=== PATIENT | male | born 1970 | race Caucasian/White ===

== ENCOUNTER 2021-01-14 17:29 | Outpatient (CLI) | payer OTHER, SELFPAY ==
[2021-01-16 19:33] LABS: H pylori, Urea Breath NOT DETECTED (NOT DETECTED)
== END 2021-01-14 17:30 | disposition home or self-care (01) ==
LOC: CHSLAB 17:33
PROVIDERS: PCP Family Medicine; Visit Provider Family Medicine
DX: K21.9 Gastro-esophageal reflux disease without esophagitis (principal)
CPT/HCPCS: 83013

== ENCOUNTER 2021-03-30 15:53 | Outpatient (CLI) | payer OTHER, SELFPAY ==
--- NOTE | ~2021-03-30 | XR_ITS ---
XR lumbar spine 2-3V DATE: 03/30/2021 16:13 INDICATION: Low back pain radiating down left lower extremity TECHNIQUE: AP, lateral, coned lateral lumbosacral views COMPARISON: None FINDINGS: Normal alignment of the lumbar spine. No fracture or bone destruction or spondylolisthesis. The lumbar pedicles are intact. Lumbar and lumbosacral interspaces are well preserved. The sacroilia c joints appear normal. IMPRESSION: Negative Reviewed, dictated and finalized at location A. IMPRESSION: Negative
== END 2021-03-30 15:54 | disposition home or self-care (01) ==
LOC: CHSIMG 15:55
PROVIDERS: PCP Nurse Practitioner Family; Visit Provider Nurse Practitioner Family
DX: M54.50 Low back pain, unspecified (principal)
CPT/HCPCS: 72100

== ENCOUNTER 2022-03-15 10:15 | Outpatient (CLI) | payer OTHER, SELFPAY ==
[2022-03-17 23:03] LABS: H pylori, Urea Breath NOT DETECTED (NOT DETECTED)
== END 2022-03-15 10:16 | disposition home or self-care (01) ==
PROVIDERS: PCP Family Medicine; Visit Provider Family Medicine
DX: K21.9 Gastro-esophageal reflux disease without esophagitis (principal)
CPT/HCPCS: 83013

== ENCOUNTER 2022-04-13 09:46 | Outpatient (CLI) | payer OTHER, SELFPAY ==
[2022-04-13 10:49] LABS: SARS-CoV-2 RNA PCR Positive (Negative)
== END 2022-04-13 09:47 | disposition home or self-care (01) ==
LOC: CHSLAB 09:48
PROVIDERS: PCP Family Medicine; Visit Provider Family Medicine
DX: U07.1 COVID-19 (principal)
CPT/HCPCS: C9803; U0003; U0005

== ENCOUNTER 2022-07-30 16:00 | Outpatient (RCR) | payer OTHER, SELFPAY ==
--- NOTE | 2022-07-30 17:46 | PTOPEVAL1 ---
Assessment and note entered by Jennifer Cervantes DPT Evaluation Information Assessment Status Evaluation Diagnosis L shoulder pain Onset April 2022 Subjective Information Patient reports that he had a cervical fusion from 3-4 about 6 years ago. In April he reports notices some pain from left side of the neck and down into the upper trap and lat. 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 He reports he works out 6 days a week. He reports that pain increases after the work day. He takes aleve when pain increases as well as bio freeze. Reported Pain Level Pain Score 1: Self Report Assessment PT Clinical Summary Patient presents to PT with L cervical and shoulder pain. Patient demonstrates decreased L shoulder strength, impaired posture and tenderness at the L upper trap impairing his ability to work a full shift without increase in pain. Patient would benefit from skilled PT to address impairments and return to PLOF. Plan of Care Interventions Electrical Stimulation,Hot Pack/Cold Pack,Manual Therapy,Mechanical Traction,Neuro Re-education, Patient/Caregiver Educati,Therapeutic Activities, Therapeutic Exercise,Self-Care/Home Management PT Services Indicated Yes Treatment Frequency and 2x weekly for 10 visits Duration These treatments will address the objective and functional deficits as defined above. The patient will be advanced safely and appropriately in order for the patient to progress towards his/her prior level of function. Additional exercises will be introduced and as well as a comprehensive home exercise program upon discharge, if needed, ?to ensure carryover of functional gains achieved in the clinic. This treatment plan has been reviewed and agreement upon by the patient.
== END 2022-08-19 14:40 | disposition home or self-care (01) ==
LOC: CHSPT 16:00
PROVIDERS: PCP Family Medicine; Visit Provider Family Medicine
DX: S46.819D Strain of other muscles, fascia and tendons at shoulder and upper arm level, unspecified arm, subsequent encounter (principal)
CPT/HCPCS: 97014; 97110; 97140; 97161; G0283

== ENCOUNTER 2023-04-12 08:07 | Outpatient (CLI) | payer OTHER, SELFPAY ==
[2023-04-12 08:23] LABS: Basophils Absolute Auto 0.05 K/mm3 (0.00-0.10); Basophils Percent Auto 0.8 % (0.0-1.0); Eosinophils Absolute Auto 0.18 K/mm3 (0.02-0.50); Eosinophils Percent Auto 2.8 % (1.0-6.0); Hematocrit 42.8 % (40.0-54.0); Hemoglobin 14.7 g/dL (14.0-18.0); Immature Granulocyte Absolute 0.02 K/mm3 (0.00-0.00); Immature Granulocyte Percent A 0.3 % (0.0-0.0); Lymphocytes Absolute Auto 2.01 K/mm3 (1.10-4.50); Mean Corpuscular HGB Conc 34.3 g/dL (32.0-36.0); Mean Corpuscular Volume 87.3 fL (78.0-102.0); Mean Platelet Volume 9.9 fl (8.7-11.0); Monocytes Absolute Auto 0.59 K/mm3 (0.10-0.90); Monocytes Percent Auto 9.1 % (2.0-11.0); Neutrophils Absolute Auto 3.6 K/mm3 (1.7-7.2); Platelet Count Result 215 K/mm3 (150-420); Red Cell Distribution Width 11.7 % (11.6-14.4); White Blood Count 6.5 K/mm3 (4.8-10.8)
[2023-04-12 09:11] LABS: Alanine Aminotransferase 38 U/L (16-63); Albumin Level 3.7 g/dL (3.4-5.0); Alkaline Phosphatase 84 U/L (46-116); Anion Gap 10 mmol/L (8-16); Aspartate Amino Transferase 17 U/L (15-37); Bilirubin,Total 0.5 mg/dL (0.00-1.00); Blood Urea Nitrogen 21 mg/dL (7-18); Calcium 8.8 mg/dL (8.5-10.1); Carbon Dioxide 26 mmol/L (21-32); Chloride 107 mmol/L (98-108); Cholesterol 154 mg/dL (0-200); Estimated Glomerular Filt Rate > 60; Glucose 102 mg/dL (70-99); HDL Direct 39 mg/dL (40-60); LDL Cholesterol Calculated 77 mg/dL (<130); Osmolality Calculated 299 mOsm/kg (285-295); Potassium 3.9 mmol/L (3.5-5.1); Prostate Specific Antigen 0.8 ng/mL (< OR = 4.0); Sodium 143 mmol/L (136-145); Total Protein 6.4 g/dL (6.4-8.2); Triglycerides 191 mg/dL (0-150)
[2023-04-12 09:12] LABS: Thyroid Stimulating Hormone Reflex 0.97 u/IU/mL (0.36-3.74)
[2023-04-15 17:43] LABS: Testosterone Free 24.9 pg/mL (35.0-155.0); Testosterone Total 132 ng/dL (250-1100)
== END 2023-04-12 08:08 | disposition home or self-care (01) ==
LOC: CHSLAB 08:09
PROVIDERS: PCP Family Medicine; Visit Provider Family Medicine
DX: Z00.00 Encounter for general adult medical examination without abnormal findings (principal); R35.1 Nocturia; E11.9 Type 2 diabetes mellitus without complications
CPT/HCPCS: 36415; 80053; 80061; 84153; 84402; 84403; 84443; 85025; G0103

== ENCOUNTER 2024-09-18 08:01 | Outpatient (CLI) | payer OTHER, SELFPAY ==
--- OUTSIDE RECORDS SUMMARY | 2024-09-18 08:13 | XMS_ITS | Clinical Summary ---
Author Organization [facility] Address [facility] [place] [address] Care Team Providers Care Metallurgist Helper Name Role Phone None, Provider MD Primary Care Provider Unavaila ble Allergies No known active allergies Medications omeprazole 20 MG capsule Take 20 mg by mouth daily. Active NON FORMULARY Take 1 tablet by mouth daily. miovite Active naproxen 375 MG tablet Take 375 mg by mouth 2 (two) times daily as needed. Neck pain following disc fusion. 3-4 cervical Active HYDROcodone-clinton taminophen 5-325 MG tabletIndicatio ns:Acute Pain < 7 Day Supply Take 1-2 tablets by mouth every 4 (four) hours as needed for Pain. Indications: Acute Pain < 7 Day Supply For Moderate Pain 35 tablet Active Family History Medical History Relation Comments No Known Problems Brother No Known Problems Daughter Diabetes Father Heart Attack Father COPD Mother No Known Problems Sister No Known Problems Son Relation Status Comments Brother Alive Daughter Alive Father Alive Mother Alive Sister Alive Son Alive Social History Tobacco Use Types Packs/Day Years Used Date Smoking Tobacco: Light Smoker Cigarettes Smokeless Tobacco: Never Comments:1 pk would last a c ouple of weeks Alcohol Use Standard Drinks/Week Comments Yes 6.7 (1 standard drink = 0.6 oz p ure alcohol) Sex and Gender Information Value Date Recorded Sex Assigned at Not on file Legal Sex Male 10:53 AM CDT Gender Identity Not on file Sexual Orientation Not on file Last Filed Vital Signs Vital Sign Reading Time Taken Comments Blood Pressure 119/89 11/10/2020 10:45 AM CDT Pulse 68 11/10/2020 10:45 AM CDT Temperature 36.1 C (97 F) 11/10/2020 10:45 AM CDT Respiratory Rate 16 11/10/2020 10:45 AM CDT Oxygen Saturation 100% 11/10/2020 10:45 AM CDT Inhaled Oxygen Concentration - - Weight 87.6 kg (193 lb 2 oz) 11/10/2020 6:55 AM CDT Height 172.7 cm (5' 8 ) 11/10/2020 6:55 AM CDT Body Mass Index 29.36 11/10/2020 6:55 AM CDT Plan of Treatment Health Maintenance Due Date Last Done Comments Colorectal Cancer Screening Colonoscopy (10 Years) 1972 Annual Physical 11/02/1975 Pneumococcal Vaccine: Pediat rics (0 to 5 Years) and At-Risk Patients (6 to 64 Years) (1 of 2 - PCV) 1978 Hepatitis C 1990 DTaP, Tdap and Td Vaccines ( 1 - Tdap) 11/02/1991 Hepatitis B Vaccines (1 of 3 - 19+ 3-dose series) 11/02/1991 Zoster Vaccines (1 of 2) 2022 COVID-19 Vaccine ( - 2023-2 5 season) 2024 Influenza Adult (#1) 2024 Meningococcal B Vaccine Aged Out No l onger eligible based on patient's age to complete this topic Meningococcal Vaccine Aged Out No milady alcides eligible based on patient's age to complete this topic RSV Immunizations Under 20 Months Aged Out No longer eligible based on patient's age to complete this topic Insurance CIG Care Teams Metallurgist Helper Relationship Specialty Start Date End Date None, Provider, PCP - General 11/07/20
--- OUTSIDE RECORDS SUMMARY | 2024-09-18 08:13 | XMS_ITS | Encounter Summary ---
Author Organization [facility] Address [address] [place] [address] Care Team Providers Care Business Teacher Name Role Phone None, Provider Primary Care Provider Unavaila ble Encounter Details Date Type Department Care Team (Late st Contact Info) Description 11/10/2020 Prep for Procedure [place] Pre-Ad[facility] Testing [address] [place], [place] [id number] Alonzo Mustafa MD [address] [place] [id number] Social History Tobacco Use Types Packs/Day Years [...] on file Sexual Orientation Not on file COVID-19 Exposure Response Date Recorded In the last month, have you been in contact with someone who was confirmed or suspected to have Coronavirus / COVID-19? No / Unsure 11/10/2020 5:07 AM CDT documented as of this encounter Plan of Treatment Not on file documented as of this encounter Visit Diagnoses Diagnosis Preoperative testing- Primary Preoperative examination, unspecified documented in this encounter Care Teams Business Teacher Relationship Specialty Start Date End Date None, Provider, PCP - General 11/07/20 documented as of this encounter
[2024-09-18 08:46] LABS: Alanine Aminotransferase 32 U/L (16-63); Albumin Level 3.9 g/dL (3.4-5.0); Alkaline Phosphatase 98 U/L (46-116); Anion Gap 9 mmol/L (4-12); Aspartate Amino Transferase 14 U/L (15-37); Bilirubin,Total 0.8 mg/dL (0.00-1.00); Blood Urea Nitrogen 20 mg/dL (7-18); Calcium 8.7 mg/dL (8.5-10.1); Carbon Dioxide 28 mmol/L (21-32); Chloride 104 mmol/L (98-108); Cholesterol 186 mg/dL (0-200); Estimated Glomerular Filt Rate > 60; Glucose 96 mg/dL (70-99); HDL Direct 45 mg/dL (40-60); LDL Cholesterol Calculated 119 mg/dL (<130); Osmolality Calculated 294 mOsm/kg (285-295); Potassium 4.3 mmol/L (3.5-5.1); Sodium 141 mmol/L (136-145); Triglycerides 110 mg/dL (0-150)
[2024-09-20 01:38] LABS: Vitamin D 25 Hydroxy 40 ng/mL (30-100)
== END 2024-09-18 08:02 | disposition home or self-care (01) ==
LOC: CHSLAB 08:03
PROVIDERS: PCP Nurse Practitioner Family; Visit Provider Nurse Practitioner Family
DX: Z00.00 Encounter for general adult medical examination without abnormal findings (principal); Z79.899 Other long term (current) drug therapy; I10 Essential (primary) hypertension; Z13.6 Encounter for screening for cardiovascular disorders
CPT/HCPCS: 36415; 80053; 80061; 82306

== ENCOUNTER 2025-03-05 14:38 | Outpatient (CLI) | payer OTHER, SELFPAY ==
--- OUTSIDE RECORDS SUMMARY | 2008-02-27 03:41 | XMS_ITS | Continuity of Care Document ---
Author Organization [facility] Address [address] [place] [address] [place] [address] Phone Care Team Providers Care Finish Patcher Name Role Phone Arnel Timhil Unavailable Unavailable Procedures Procedure Date Eye Exam, New Patient Advance Directives Directive Yes / No Effective Date File Name No Information Encounters Encounter Description Practice Location Reason(s) For Visit Diagnoses Date Provider Providers Copied on Encounter [facility], [address] [place] [address] [address], [place], [place], [id number], [place] tel:[phone] [facility] [place] No Information Feb-0 2-200 [address] [place] Ambrosio. [address] [facility] [address], [place], [address], [place]. tel:[phone] Referring Provider: Roberto Higgins, [address] [place] [address], [facility]. tel:[phone] Family History Family Member Type Diagnosis Age At Onset No Information Payers Payer name Insurance type Covered green party ID Authoriza tion(s) Medicaid [facility] [id number] Social History Type Description Quantity Date Captured Comments Sex Male Smoking Status No Information Chief Complaint And Reason For Visit No Information Reason For Referral Reason For Referral No Information History Of Present Illness Encounter Date Complaint History Of Prese nt Illness No Information Functional Status Date Functional Assessmen t No Information Instructions Date Instruction Additional Infor mation No Information Assessments Type Assessment Date No Information Patient Care Teams Name Effective Dates (start - stop) Status Members No Information
[2025-03-05 15:42] LABS: Prostate Specific Antigen 0.7 ng/mL (< OR = 4.0)
== END 2025-03-05 14:39 | disposition home or self-care (01) ==
LOC: CHSLAB 14:40
PROVIDERS: PCP Family Medicine; Visit Provider Family Medicine
DX: R35.1 Nocturia (principal)
CPT/HCPCS: 36415; 84153; G0103

== ENCOUNTER 2025-04-23 11:42 | Outpatient (CLI) | payer OTHER, SELFPAY ==
[2025-04-23 12:43] LABS: Hemoglobin A1C 5.4 % (<5.7)
[2025-04-23 13:19] LABS: Thyroid Stimulating Hormone Reflex 1.880 uIU/mL (0.465-4.68)
--- OUTSIDE RECORDS SUMMARY | 2025-04-23 13:47 | XMS_ITS | Clinical Summary ---
Author Organization [facility] Address [facility] [place] [address] Care Team Providers Care Transportation Worker Name Role Phone None, Provider MD Primary [...] 6:55 AM CDT Height 172.7 cm (5' 8) 11/10/2020 6:55 AM CDT Body Mass Index 29.36 11/10/2020 6:55 AM CDT Plan of Treatment Health Maintenance Due Date Last Done Comments Colorectal Cancer Screening Colonoscopy (10 Years) 1972 Annual Physical 11/02/1975 Hepatitis C 1990 DTaP, Tdap and Td Vaccines ( 1 - Tdap) 11/02/1991 Hepatitis B Vaccines (1 of 3 - 19+ 3-dose series) 11/02/1991 Pneumococcal Vaccine: 50+ Ye ars (1 of 2 - PCV) 11/02/1991 Zoster Vaccines (1 of 2) 2022 COVID-19 Vaccine (1 - 2024-2 6 season) 2025 Influenza Adult (#1) 2025 Hepatitis A Vaccines Aged Out No long er eligible based on patient's age to complete this topic Meningococcal B Vaccine Aged Out No l onger eligible based on patient's age to complete this topic Meningococcal Vaccine Aged Out No milady alcides eligible based on patient's age to complete this topic RSV Immunizations Under 20 Months Aged Out No longer eligible based on patient's age to complete this topic Insurance CIG Care Teams Transportation Worker Relationship Specialty Start Date End Date None, Provider, PCP - General 11/07/20
--- OUTSIDE RECORDS SUMMARY | 2025-04-23 13:47 | XMS_ITS | Encounter Summary ---
Author Organization [facility] Address [address] [place] [address] Care Team Providers Care Deputy Felony Clerk Name Role Phone None, Provider Primary Care Provider Unavaila ble Encounter Details Date Type Department Care Team (Late st Contact Info) Description 11/10/2020 Prep for Procedure [place] Pre-Ad[facility] Testing [address] [place] [address] Alonzo Mustafa MD [address] [place] [phone] Social History Tobacco Use Types Packs/Day [...] unspecified documented in this encounter Care Teams Deputy Felony Clerk Relationship Specialty Start Date End Date None, Provider, PCP - General 11/07/20 documented as of this encounter
== END 2025-04-23 11:43 | disposition home or self-care (01) ==
LOC: CHSLAB 11:44
PROVIDERS: PCP Family Medicine; Visit Provider Nurse Practitioner Family
DX: Z00.00 Encounter for general adult medical examination without abnormal findings (principal)
CPT/HCPCS: 36415; 83036; 84443